=== PATIENT | female | born 1960 | race Caucasian/White ===

== ENCOUNTER → 2016-07-12 | Outpatient (CLI) | payer OTHER ==
--- NOTE | 2016-07-12 12:01 | XR ---
EXAMINATION TYPE: XR lumbosacral spine min 4V DATE OF EXAM: 07/12/2016 11:51 AM CLINICAL HISTORY: Back pain for years. TECHNIQUE: Frontal, lateral, and oblique images of the lumbar spine are obtained. COMPARISON: None FINDINGS: There are 5 lumbar type vertebral bodies identified. The lumbar spine shows satisfactory alignment without evidence of acute fracture or dislocation. Vertebral body heights and disk space he ights are within normal limits. No significant spurring is seen. The oblique images appear within nor mal limits. Some vascular calcification of aorta and overlying soft tissue is present. IMPRESSION: No significant finding is seen to account for patient's symptoms.
== END | disposition home or self-care (01) ==
LOC: RADXRMAIN 11:26
PROVIDERS: ATTEND Family Medicine
DX: M54.5 Low back pain (principal)
CPT/HCPCS: 72110

== ENCOUNTER → 2019-03-16 | Outpatient (CLI) | payer BC ==
--- NOTE | 2019-03-16 13:58 | CT ---
EXAMINATION TYPE: CT abdomen w con DATE OF EXAM: 03/16/2019 COMPARISON: 09/13/2010 HISTORY: LUQ pain. Pt c/o pain just below ribs, stating sometimes she can palpate a lump. Trouble sit ting up, caffine, greasy foods make worse CT DLP: 264.9 mGycm Automated exposure control for dose reduction was used. TECHNIQUE: Helical acquisition of images was performed from the lung bases through the top of iliac crest to include entire abdomen. CONTRAST: Performed with Oral Contrast and with IV Contrast, patient injected with 100 mL of Isovue 300. FINDINGS: LUNG BASES: No significant abnormality is appreciated. LIVER/GB: Low-attenuation within the left lobe of the liver near the ligamentum teres most likely rel ated to area of localized fatty infiltration. PANCREAS: No significant abnormality is seen. SPLEEN: No significant abnormality is seen. ADRENALS: No significant abnormality is seen. KIDNEYS: Hypodensity within the left kidney too small to characterize. No hydronephrosis. BOWEL: Stomach is decompressed. This limits evaluation. LYMPH NODES: No significant abnormality is seen. OSSEOUS STRUCTURES: No significant abnormality is seen. OTHER: Tarlov cyst incidentally noted. Small hiatal hernia noted. Atherosclerotic change aorta. Incid ental note made of prominence of the gonadal vein. IMPRESSION: 1 SMALL HIATAL HERNIA. MILD WALL THICKENING OF THE GASTRIC ANTRUM NOTED WHICH MAY BE RELATED TO INCOM PLETE DISTENTION. CORRELATE CLINICALLY. IF NECESSARY CORRELATION WITH UPPER GI OR DIRECT VISUALIZATIO N COULD BE OBTAINED. 2. THERE IS NO EVIDENCE OF SOFT TISSUE MASS IN THE LEFT UPPER QUADRANT. 3. SUB-5 MM LEFT RENAL LESION TOO SMALL TO CHARACTERIZE AND OF DOUBTFUL SIGNIFICANCE..
== END | disposition home or self-care (01) ==
LOC: RADCTMAIN 10:00
PROVIDERS: ATTEND Surgery
DX: K44.9 Diaphragmatic hernia without obstruction or gangrene (principal); N28.9 Disorder of kidney and ureter, unspecified; K31.89 Other diseases of stomach and duodenum
CPT/HCPCS: 74160; Q9967

== ENCOUNTER → 2019-03-28 | Outpatient (CLI) | payer BC ==
--- NOTE | 2019-03-29 09:52 | MM ---
Reason for exam: screening (asymptomatic). Last mammogram was performed 3 years and 7 months ago. History: Patient is postmenopausal. Benign excisional biopsy of the left breast, 1979. Physical Findings: A clinical breast exam by your physician is recommended on an annual basis and results should be correlated with mammographic findings. MG Screening Mammo w CAD Bilateral CC and MLO view(s) were taken. Prior study comparison: September 02, 2015, bilateral MG 3d work up w/cad YOLA. July 31, 2015, bilateral MG screening mammo w CAD. The breast tissue is heterogeneously dense. This may lower the sensitivity of mammography. Stable benign calcifications. There is chronic nodularity bilaterally. No significant changes when compared with prior studies. ASSESSMENT: Benign, BI-RAD 2 RECOMMENDATION: Routine screening mammogram of both breasts in 1 year.
== END ==
LOC: RADMAMWWP 08:17
PROVIDERS: ATTEND Family Medicine
DX: Z12.31 Encounter for screening mammogram for malignant neoplasm of breast (principal)
CPT/HCPCS: 77067